=== PATIENT | female | born 1965 | race Caucasian/White ===

== ENCOUNTER 2017-10-11 21:06 | Emergency (ER) | payer MEDICAID, OTHER ==
[2017-10-11 21:29] VITALS: BMI 25.2
[2017-10-11 21:31] VITALS: BP 123/84; O2SAT 99
--- NOTE | 2017-10-11 22:17 | ED PDOC ---
Arrival/HPI - General Chief Complaint: Abnormal Skin Integrity Time Seen by Provider: 10/11/17 21:44 Historian: Patient - History of Present Illness Narrative History of Present Illness (Text): 10/11/17 22:12 Pt is a 52 yr old female who presents to the ED for an itchy genital rash for the past 3 days. Pt says the rash started with one small itchy lesion that began to spread after she made contact with a toilet in a public restroom. Says she tried many different home remedies without relief or change. Denies dysuria , vaginal dc, abdominal pain, fever, n/v/d or any other complaint Time/Duration: < week Symptom Course: Worsening Quality: Other (itchy) Severity Level: 3, Mild Activities at Onset: Rest Context: Home Past Medical History - Provider Review Nursing Documentation Reviewed: Yes - Travel History Have you recently traveled outside [place] w/in the past 3 mons?: No - Past History Past History: No Previous - Infectious Disease Hx of Infectious Diseases: None - Reproductive Menopause: No Family/Social History - Physician Review Nursing Documentation Reviewed: Yes Family/Social History: Unknown Family HX Allergies/Home Meds Allergies/Adverse Reactions: Allergies Dye Allergy (Mild, Uncoded 10/11/17 21:34) RASH Review of Systems - Review of Systems Constitutional: Normal Eyes: Normal ENT: Normal Respiratory: Normal Cardiovascular: Normal Gastrointestinal: Normal Genitourinary Female: Normal Musculoskeletal: Normal Skin: Rash (pubic area; itchy ) Neurological: Normal Endocrine: Normal Hemo/Lymphatic: Normal Psychiatric: Normal Physical Exam Vital Signs Reviewed: Yes Vital Signs Temp Pulse Resp BP Pulse Ox 10/11/17 23:08 98.0 F 91 H 18 99 10/11/17 21:29 98.6 F 76 16 123/84 99 Temperature: Afebrile Blood Pressure: Normal Pulse: Regular Respiratory Rate: Normal Appearance: Positive for: Well-Appearing, Non-Toxic, Comfortable Pain Distress: None Mental Status: Positive for: Alert and Oriented X 3 - Systems Exam Head: Present: Atraumatic, Normocephalic Pupils: Present: PERRL Extroacular Muscles: Present: EOMI Conjunctiva: Present: Normal Mouth: Present: Moist Mucous Membranes Neck: Present: Normal Range of Motion Respiratory/Chest: Present: Clear to Auscultation, Good Air Exchange. No: Respiratory Distress, Accessory Muscle Use Cardiovascular: Present: Regular Rate and Rhythm, Normal S1, S2. No: Murmurs Abdomen: No: Tenderness, Distention, Peritoneal Signs Genitourinary/Pelvic Exam: Present: Normal External Genitalia, Other (tinea cruris on the mons pubis and labia majora) Back: Present: Normal Inspection Upper Extremity: Present: Normal Inspection. No: Cyanosis, Edema Lower Extremity: Present: Normal Inspection. No: Edema Neurological: Present: GCS=15, CN II-XII Intact, Speech Normal Skin: Present: Warm, Dry, Normal Color. No: Rashes Psychiatric: Present: Alert, Oriented x 3, Normal Insight, Normal Concentration Medical Decision Making ED Course and Treatment: 10/11/17 22:17 Impression Pt is a 52 yr old female who presents to the ED for an itchy genital rash for the past 3 days. macular rash on the labia and mons pubis Plan and Progress Note Dispo home with clotrimazole and script for Diflucan 150mg PO if vaginal symptoms f/u with PMD counselled on hygeine and skin care Disposition/Present on Arrival - Present on Arrival Any Indicators Present on Arrival: Yes History of DVT/PE: No History of Uncontrolled Diabetes: No Urinary Catheter: No History of Decub. Ulcer: No History Surgical Site Infection Following: None - Disposition Have Diagnosis and Disposition been Completed?: Yes Diagnosis: Tinea cruris Disposition: HOME/ ROUTINE Disposition Time: 22:21 Patient Plan: Discharge Condition: GOOD Discharge Instructions (ExitCare): Andrzej Itch (DC) Additional Instructions: Zandra, please apply the medication as directed; if you begin to have vaginal itch with discharge, take the Fluconazole pill medication. If you continue to have the rash more than 2 weeks, see your Primary care doctor for further evaluation Be Well[facility]ELISSA Prescriptions: Clotrimazole/Betamethasone [Lotrisone] 15 gm EXT Q12 14 Days #1 tube Fluconazole 150 mg PO ONCE 1 Days #1 tablet Referrals: Carolyn Guan DO [Primary Care Provider] - Follow up with primary Forms: [employer] ([place]ese)
[2017-10-11 23:08] VITALS: PULSE 91; RESP 18; TEMP 98
== END 2017-10-11 23:00 | disposition home or self-care (01) ==
LOC: ED 21:06
DX: B35.6 Tinea cruris (principal)

== ENCOUNTER 2018-01-12 22:20 | Emergency (ER) | payer OTHER ==
[2018-01-12 22:21] VITALS: BMI 25.2
[2018-01-12 22:33] VITALS: BP 124/87; PULSE 76; TEMP 98.7
[2018-01-12] MEDS ORDERED: Sodium Chloride 0.9% 500 ML IV STA (22:52)
--- NOTE | 2018-01-12 23:01 | ED PDOC ---
Arrival/HPI - General Historian: Patient - History of Present Illness Time/Duration: 4-6 hours Symptom Course: Unchanged Activities at Onset: Light Context: Home <Paulette Wolffmelina - Last Filed: 01/13/18 02:54> <Elier Mcgrath DO - Last Filed: 01/13/18 06:26> - General Chief Complaint: Medical Clearance Time Seen by Provider: 01/12/18 22:38 - History of Present Illness Narrative History of Present Illness (Text): 01/12/18 22:56 This is a 52 year old female with PMH of spinal stenosis and x4 presenting to the ER after taking approximately 200mg of metamucil. She is scheduled to have colonoscopy tomorrow but was mistakenly given metamucil in addition to miralax and dulcolax. she admits nausea, vomiting x1 NBNB and B/L lower quadrant abdominal discomfort. She denies CP, SOB, headache, fevers, hematemesis, hematochezia, diarrhea, dark stools, recent sicness, numbness, tingling, urinary symptoms and vaginal symptoms. LMP was 3 months ago. PCP is Dr. Mariscal (Jaciel Wolff) Past Medical History - Provider Review Nursing Documentation Reviewed: Yes - Past History Past History: No Previous - Infectious Disease Hx of Infectious Diseases: None - Reproductive Menopause: Yes ([id number]) - Cardiac Hx Cardiac Disorders: No - Pulmonary Hx Respiratory Disorders: No - Neurological Hx Neurological Disorder: No - HEENT Hx HEENT Disorder: No - Renal Hx Renal Disorder: No - Endocrine/Metabolic Hx Endocrine Disorders: No - Hematological/Oncological Hx Blood Disorders: No - Integumentary Hx Dermatological Disorder: No - Musculoskeletal/Rheumatological Hx Musculoskeletal Disorders: Yes Hx Arthritis: Yes Hx Back Pain: Yes - Gastrointestinal Hx Gastrointestinal Disorders: No - Genitourinary/Gynecological Hx Genitourinary Disorders: No - Psychiatric Hx Psychophysiologic Disorder: No Hx Substance Use: No - Surgical History Hx Section: Yes (x4) Other/Comment: 2 hernia surgery - Anesthesia Hx Anesthesia: Yes Hx Anesthesia Reactions: No Hx Malignant Hyperthermia: No <DonaldeduardoJaciel - Last Filed: 01/13/18 02:54> Family/Social History - Physician Review Nursing Documentation Reviewed: Yes Family/Social History: Unknown Family HX Smoking Status: Never Smoked Hx Alcohol Use: No Hx Substance Use: No <Jaciel Wolff - Last Filed: 01/13/18 02:54> Allergies/Home Meds <Jaciel Wolff - Last Filed: 01/13/18 02:54> <Elier Mcgrath DO - Last Filed: 01/13/18 06:26> Allergies/Adverse Reactions: Allergies Iodinated Contrast- Oral and IV Dye Allergy (Verified 01/12/18 22:27) ANAPHYLAXIS Dye Allergy (Mild, Uncoded 10/11/17 21:34) RASH Home Medications: Home Meds Medication Instructions Recorded Confirmed No Known Home Med 01/12/18 01/12/18 Review of Systems - Physician Review All systems were reviewed & negative as marked: Yes - Review of Systems Constitutional: Normal. absent: Fevers Eyes: Normal ENT: Normal Respiratory: Normal. absent: SOB Cardiovascular: Normal. absent: Chest Pain Gastrointestinal: Nausea, Vomiting. absent: Abdominal Pain, Diarrhea, Hematochezia, Hematemesis Genitourinary Female: Normal Musculoskeletal: Normal. absent: Arthralgias Skin: Normal Neurological: Normal. absent: Headache, Dizziness Endocrine: Normal. absent: Diaphoresis Psychiatric: Normal <Jaciel Wolff - Last Filed: 01/13/18 02:54> Physical Exam Vital Signs Reviewed: Yes Temperature: Afebrile Blood Pressure: Normal Pulse: Regular Respiratory Rate: Normal Appearance: Positive for: Well-Appearing, Non-Toxic, Comfortable Pain Distress: None Mental Status: Positive for: Alert and Oriented X 3 - Systems Exam Head: Present: Atraumatic, Normocephalic Pupils: Present: PERRL Extroacular Muscles: Present: EOMI Conjunctiva: Present: Normal Mouth: Present: Moist Mucous Membranes Neck: Present: Normal Range of Motion Respiratory/Chest: Present: Clear to Auscultation, Good Air Exchange. No: Respiratory Distress, Accessory Muscle Use Cardiovascular: Present: Regular Rate and Rhythm, Normal S1, S2. No: Murmurs Abdomen: Present: Tenderness, Distention, Normal Bowel Sounds. No: Peritoneal Signs, Rebound, Guarding, McBurney's Point Tender Back: Present: Normal Inspection Upper Extremity: Present: Normal Inspection. No: Cyanosis, Edema Lower Extremity: Present: Normal Inspection. No: Edema Neurological: Present: Speech Normal, Motor Func Grossly Intact, Normal Sensory Function Skin: Present: Warm, Dry, Normal Color. No: Rashes Psychiatric: Present: Alert, Oriented x 3, Normal Insight, Normal Concentration <Jaciel Wolff - Last Filed: 01/13/18 02:54> Vital Signs Temp Pulse Resp BP Pulse Ox 01/13/18 03:20 20 99 01/12/18 22:32 98.7 F 76 16 124/87 97 Medical Decision Making <Jaciel Wolff - Last Filed: 01/13/18 02:54> <Elier Mcgrath DO - Last Filed: 01/13/18 06:26> ED Course and Treatment: 01/12/18 23:02 Impression: This is a 52 year old female with PMH of spinal stenosis and C- section x4 presenting to the ER after taking approximately 200mg of metamucil. Differential not limited to: metamucil toxicity vs gastritis vs gastroenteritis Plan: -blood work -Abdominal xray -zofran -fluids Progress: 01/13/18 02:54 Patient resting comfortably, vitals are stable and afebrile. Nausea and abdominal pain have improved. Patient expresses agreement with discharge. CT abd: Large amount of stool in the transverse, descending and sigmoid colon. (Jaciel Wolff) - Lab Interpretations Lab Results: 01/12/18 23:20 01/12/18 23:20 Lab Results 01/12/18 23:20: Sodium 144, Potassium 4.4, Chloride 105, Carbon Dioxide 25, Anion Gap 19, BUN 7, Creatinine 0.7, Est GFR ( Amer) > 60, Est GFR (Non- Af Amer) > 60, Random Glucose 96, Calcium 9.9, Total Bilirubin 0.9, AST 28, ALT 38, Alkaline Phosphatase 53, Total Protein 8.6 H, Albumin 4.7, Globulin 4.0, Albumin/Globulin Ratio 1.2 01/12/18 23:20: WBC 11.2 H, RBC 4.74, Hgb 14.5, Hct 42.2, MCV 89.0, MCH 30.6, MCHC 34.4, RDW 13.5, Plt Count 351, MPV 8.6, Gran % 70.9 H, Lymph % (Auto) 20.8 L, Blair % (Auto) 6.8 H, Eos % (Auto) 1.3 L, Baso % (Auto) 0.2, Gran # 7.90 H, Lymph # (Auto) 2.3, Blair # (Auto) 0.8 H, Eos # (Auto) 0.2, Baso # (Auto) 0.02 - RAD Interpretation Radiology Orders: 01/13/18 00:01 ABD & PELVIS W/O PO OR IV CONT [CT] Stat - Medication Orders Current Medication Orders: Discontinued Medications Sodium Chloride (Sodium Chloride 0.9%) 500 mls @ 999 mls/hr IV .Q31M STA Stop: 01/12/18 23:22 Last Admin: 01/13/18 00:32 Dose: 999 mls/hr eMAR Start Stop Document 01/13/18 00:32 SS (Rec: 01/13/18 00:32 SS [id number]) Intravenous Solution Start Date 01/13/18 Start Time 00:12 End Date 01/13/18 End time 01:12 Total Infusion Time 60 Ondansetron HCl (Zofran Inj) 4 mg IVP STAT STA Stop: 01/12/18 22:53 Last Admin: 01/13/18 00:32 Dose: 4 mg IVP Administration Document 01/13/18 00:32 SS (Rec: 01/13/18 00:32 SS [id number]) Charges for Administration # of IVP Administrations 1 - PA / HEATING AND COOLING TECHNICIAN / Resident Statement JOSELINE has reviewed & agrees with the documentation as recorded. JOSELINE has examined the patient and agrees with the treatment plan. <Jaciel Wolff - Last Filed: 01/13/18 02:54> Disposition/Present on Arrival - Present on Arrival History of DVT/PE: No History of Uncontrolled Diabetes: No Urinary Catheter: No History of Decub. Ulcer: No History Surgical Site Infection Following: None <Jaciel Wolff - Last Filed: 01/13/18 02:54> - Present on Arrival Any Indicators Present on Arrival: No - Disposition Have Diagnosis and Disposition been Completed?: Yes Disposition Time: 02:50 <Elier Mcgrath DO - Last Filed: 01/13/18 06:26> - Disposition Diagnosis: Constipation Disposition: HOME/ ROUTINE Condition: GOOD Discharge Instructions (ExitCare): Constipation, Adult (DC) Additional Instructions: TIM CARUSO, thank you for letting us take care of you today. The emergency medical care you received today was directed at your acute symptoms. If you were prescribed any medication, please fill it and take as directed. It may take several days for your symptoms to resolve. Return to the Emergency Department if your symptoms worsen, do not improve, or if you have any other problems. Please contact your doctor or call one of the physicians/clinics you have been referred to that are listed on the Patient Visit Information form that is included in your discharge packet. Bring any paperwork you were given at discharge with you along with any medications you are taking to your follow up visit. Our treatment cannot replace ongoing medical care by a primary care provider outside of the emergency department. Thank you for allowing the [facility] team to be part of your care today. Follow up with your primary care doctor and your GI doctor in 1-2 days for re- evaluation and further management. Forms: [employer] ([place]olan)
[2018-01-12 23:56] LABS: BASO # 0.02 K/mm3 (0.0-2.0); BASO % 0.2 % (0.0-3.0); EOS # 0.2 (0.0-0.7); EOS % 1.3 % (1.5-5.0); GRAN # 7.9 (1.4-6.5); GRAN % 70.9 % (50.0-68.0); HEMOGLOBIN 14.5 g/dL (12.0-16.0); LYMPH # 2.3 (1.2-3.4); LYMPH % 20.8 % (22.0-35.0); MEAN CORPUSCULAR HEMOGLOBIN 30.6 pg (25.0-35.0); MEAN CORPUSCULAR HGB CONC 34.4 g/dl (31.0-37.0); MEAN PLATELET VOLUME 8.6 fl (7.0-11.0); MONO # 0.8 (0.1-0.6); MONO % 6.8 % (1.0-6.0); RBC 4.74 10^6/uL (3.5-6.1); RED CELL DISTRIBUTION WIDTH 13.5 % (11.5-14.5); WHITE BLOOD COUNT 11.2 10^3/ul (4.5-11.0)
[2018-01-12 23:57] LABS: ALB/GLOB RATIO 1.2 (1.1-1.8); ALBUMIN 4.7 g/dL (3.0-4.8); ALT/SGPT 38 U/L (7-56); AST/SGOT 28 U/L (14-36); BLOOD UREA NITROGEN 7 mg/dL (7-21); CALCIUM 9.9 mg/dL (8.4-10.5); GFR AFRICAN-AMERICAN > 60; GFR NON-AFRICAN AMERICAN > 60
[2018-01-13 05:18] VITALS: RESP 20; O2SAT 99
--- NOTE | 2018-01-13 09:32 | CT ---
Date of service: 01/13/2018 PROCEDURE: CT Abdomen and Pelvis without intravenous contrast HISTORY: diffuse abdominal tenderness COMPARISON: None. TECHNIQUE: Without contrast.. Contrast dose: 0 Radiation dose: Total exam DLP = 468.70 mGy-cm. This CT exam was performed using one or more of the following dose reduction techniques: Automated exposure control, adjustment of the mA and/or kV according to patient size, and/or use of iterative reconstruction technique. FINDINGS: LOWER THORAX: Unremarkable. LIVER: Normal size, contour and attenuation. Incidental nonspecific 7 mm low attenuation lesion in the superior right hepatic lobe. No other mass. No biliary dilatation. GALLBLADDER AND BILE DUCTS: Unremarkable. PANCREAS: Unremarkable. No gross lesion or ductal dilatation. SPLEEN: Unremarkable. ADRENALS: Unremarkable. No mass. KIDNEYS AND URETERS: Nonobstructing 2 mm mid left renal calculus. No right renal calculus. No hydroureter or ureteral calculus. No perinephric fluid. No renal mass. VASCULATURE: Unremarkable. No aortic aneurysm. BOWEL: Mild retained feces. No bowel obstruction. APPENDIX: Unremarkable. Normal appendix. PERITONEUM: Unremarkable. No free fluid. No free air. LYMPH NODES: Unremarkable. No enlarged lymph nodes. BLADDER: Unremarkable. REPRODUCTIVE: Unremarkable. BONES: No acute fracture. OTHER FINDINGS: None. IMPRESSION: Nonobstructing mid left renal calculus. Nonspecific 7 mm low attenuation lesion in the right hepatic lobe. No other significant abnormality. The preliminary findings for this examination were reported by [facility] at 2:46 a.m. on 01/13/2018. There is discordance of this report with the preliminary findings. The nonobstructing small left renal calculus was not described in the preliminary report of this examination.
== END 2018-01-13 05:17 | disposition home or self-care (01) ==
LOC: ED 22:20
DX: K59.00 Constipation, unspecified (principal)
CPT/HCPCS: 74176; 80053; 85025; 96361; 96374; 99282; J2405; J7040